=== PATIENT | female | born 1960 | race Caucasian/White ===

== ENCOUNTER 2020-09-28 01:12 | Emergency (ER) | payer OTHER ==
[2020-09-28 01:26] VITALS: BP 127/80
--- NOTE | 2020-09-28 02:01 | ER Document Report ---
ED Medical Screen (RME) - General Chief Complaint: Flank Pain Stated Complaint: ABDOMINAL PAIN POSS KIDNEY STONE Time Seen by Provider: 09/28/20 01:56 Notes: Patient presents to the ER for evaluation of left flank pain that began today. The patient states she has a known kidney stone in the left ureter. She states she was diagnosed last week when she was again symptomatic. She states she was asymptomatic this week until today. She states she is from [place] which is where her urologist is. She denies nausea or vomiting. She denies dysuria. She denies fever. Exam- CONSTITUTIONAL: Patient appears to be uncomfortable. She is in mild distress. PULMONARY: Normal chest rise and fall. No respiratory distress or stridor CARDIOVASCULAR: Regular rate. Distal extremities are warm and well perfused. I have greeted and performed a rapid initial assessment of this patient. A comprehensive ED assessment and evaluation of the patient, analysis of test results and completion of the medical decision making process will be conducted by additional ED providers. Dictation of this chart was performed using voice recognition software; therefore, there may be some unintended grammatical errors. Physical Exam - Vital signs Vitals: Temp Pulse Resp BP Pulse Ox 98.3 F 76 18 127/80 H 97 09/28/20 01:25 09/28/20 01:25 09/28/20 01:25 09/28/20 01:25 09/28/20 01:25 Course - Vital Signs Vital signs: Temp Pulse Resp BP Pulse Ox 98.3 F 76 18 127/80 H 97 09/28/20 01:25 09/28/20 01:25 09/28/20 01:25 09/28/20 01:25 09/28/20 01:25
[2020-09-28 02:48] LABS: ABSOLUTE BASOPHILS # (AUTO) 0.1 10^3/uL (0.0-0.2); ABSOLUTE EOSINOPHILS # (AUTO) 0.2 10^3/uL (0.0-0.6); ABSOLUTE LYMPHOCYTES (AUTO) 1.7 10^3/uL (0.5-4.7); ABSOLUTE MONOCYTES (AUTO) 0.8 10^3/uL (0.1-1.4); ABSOLUTE NEUT (AUTO) 3.6 10^3/uL (1.7-8.2); BASOPHILS % (AUTO) 0.8 % (0-2); EOSINOPHILS % (AUTO) 3.4 % (0-6); HEMATOCRIT 44.5 % (36.0-47.0); HEMOGLOBIN 15.1 g/dL (12.0-15.5); LYMPHOCYTES % (AUTO) 26.7 % (13-45); MEAN CORPUSCULAR HEMOGLOBIN 32.2 pg (27.0-33.4); MEAN CORPUSCULAR HGB CONC 33.9 g/dL (32.0-36.0); MEAN CORPUSCULAR VOLUME 95 fl (80-97); PLATELET COUNT 224 10^3/uL (150-450); RED CELL DISTRIBUTION WIDTH 15.3 % (11.5-14.0); SEGMENTED NEUTROPHILS % (AUTO) 57.1 % (42-78); TOTAL CELLS COUNTED % (AUTO) 100 %; WHITE BLOOD COUNT 6.2 10^3/uL (4.0-10.5)
[2020-09-28 03:04] LABS: ANION GAP 8 (5-19); BLOOD UREA NITROGEN 24 mg/dL (7-20); CALCIUM 9.4 mg/dL (8.4-10.2); CARBON DIOXIDE 22 mmol/L (22-30); CHLORIDE 104 mmol/L (98-107); GLUCOSE 103 mg/dL (75-110); POTASSIUM 4.8 mmol/L (3.6-5.0)
[2020-09-28] MEDS ORDERED: ONDANSETRON HCL INJ/PF 4 MG/2 ML SDV IV ONE (03:17)
[2020-09-28] MEDS ORDERED: MORPHINE SULFATE 10 MG/ML INJ IV ONE (03:17)
[2020-09-28] MEDS ORDERED: NORMAL SALINE 1000 ML 1,000 ML IV ONE (03:17)
[2020-09-28] MEDS ORDERED: KETOROLAC TROMETHAMINE INJ/PF 30 MG/1 ML SDV IV ONE ×2 (03:17→05:32)
[2020-09-28 03:19] LABS: APPEARANCE,URINE SLIGHTLY-CLOUDY; BILIRUBIN,URINE NEGATIVE (NEGATIVE); COLOR,URINE YELLOW; GLUCOSE, URINE NEGATIVE (NEGATIVE); KETONES,URINE NEGATIVE (NEGATIVE); LEUKOCYTE ESTERASE,URINE SMALL (NEGATIVE); NITRITE,URINE NEGATIVE (NEGATIVE); PROTEIN,URINE NEGATIVE (NEGATIVE); URINE SPECIFIC GRAVITY 1.017; UROBILINOGEN,URINE NEGATIVE mg/dL (<2.0)
--- NOTE | 2020-09-28 03:19 | ER Document Report ---
ED GI/ - General Chief Complaint: Flank Pain Stated Complaint: ABDOMINAL PAIN POSS KIDNEY STONE Time Seen by Provider: 09/28/20 01:56 Notes: Patient is a 60-year-old female that comes emergency department for chief complaint of left flank pain. Patient states she has a known 5 mm kidney stone in the left ureter that she is passing, she had a CAT scan last week, she follows with a urologist in [place]. She states that tonight she suddenly started having severe worsening pain in her left mid to lower abdomen radiating to her left flank. She denies nausea, vomiting, fever, dysuria. She denies hematuria. She has never passed a kidney stone before this one. She denies any other complaints. She states she was prescribed Toradol and took a dose around noon and has not had anything for pain since that time. - Related Data Allergies/Adverse Reactions: Sulfa (Sulfonamide Antibiotics) Allergy (Verified 09/28/20 02:01) codeine Adverse Reaction (Verified 09/28/20 02:01) Home Medications: levothyroxine Past Medical History - General Information source: Patient - Social History Smoking Status: Never Smoker Frequency of alcohol use: None Drug Abuse: None Lives with: Family Family History: Reviewed & Not Pertinent Renal/ Medical History: Reports: Hx Kidney Stones Past Surgical History: Reports: Hx Abdominal Surgery - Lap band, Hx Section, Hx Hysterectomy, Hx Orthopedic Surgery - Carpal tunnel Review of Systems - Review of Systems Constitutional: No symptoms reported EENT: No symptoms reported Cardiovascular: No symptoms reported Respiratory: No symptoms reported Gastrointestinal: See HPI Genitourinary: See HPI Female Genitourinary: No symptoms reported Musculoskeletal: No symptoms reported Skin: No symptoms reported Hematologic/Lymphatic: No symptoms reported Neurological/Psychological: No symptoms reported Physical Exam - Vital signs Vitals: Temp Pulse Resp BP Pulse Ox 98.3 F 76 18 127/80 H 97 09/28/20 01:25 09/28/20 01:25 09/28/20 01:25 09/28/20 01:25 09/28/20 01:25 - Notes Notes: GENERAL: Patient grimacing, restless, appears to be in pain HEAD: Normocephalic, atraumatic. EYES: Pupils equal, round, and reactive to light. Extraocular movements intact. ENT: Oral mucosa moist, tongue midline. Oropharynx unremarkable. Airway patent. NECK: Full range of motion. Supple. Trachea midline. No lymphadenopathy. LUNGS: Clear to auscultation bilaterally, no wheezes, rales, or rhonchi. No respiratory distress. Non-tender chest wall. HEART: Regular rate and rhythm. No murmur ABDOMEN: Tenderness over the general mid to lower left abdomen although no rigidity, distention, or guarding are noted EXTREMITIES: Moves all 4 extremities spontaneously. No edema, normal radial and dorsalis pedis pulses bilaterally. No cyanosis. BACK: no cervical, thoracic, lumbar midline tenderness. No saddle anesthesia, normal distal neurovascular exam. Moves all extremities in full range of motion. NEUROLOGICAL: Alert and oriented x3. Normal speech. Cranial nerves II through XII grossly intact. Strength 5/5 in all extremities. PSYCH: Slightly agitated SKIN: Warm, dry, normal turgor. No rashes or lesions noted. Course - Re-evaluation Re-evalutation: On initial exam patient is clearly uncomfortable. She has mild generalized tenderness over the left side of her abdomen however, no guarding, unremarkable exam otherwise. Vital signs unremarkable, no fever. CBC and chemistry reviewed and unremarkable. Urinalysis nonspecific, patient states she did not clean for this, afterwards we attempted a straight catheterization but we did not wait long enough and her bladder was empty, later patient provided a small amount of urine but only filled the bottom of the cup. Patient given IV fluids. Based on squamous epithelials, few white blood cells, no bacteria or nitrites on the repeat urinalysis which patient cleaned before I do not see an overt infection. This was cultured. Patient symptoms significantly improved after medications, patient is only on Toradol at home. Patient already has urology follow-up scheduled. Discussed details, recommendations, provided with symptom relief, discussed return precautions. Patient and state appreciation and agreement. Stable and well-appearing at time of discharge. - Vital Signs Vital signs: Temp Pulse Resp BP Pulse Ox 98.3 F 76 18 127/80 H 97 09/28/20 01:25 09/28/20 01:25 09/28/20 01:25 09/28/20 01:25 09/28/20 01:25 - Laboratory Result Diagrams: 09/28/20 02:15 09/28/20 02:15 Laboratory results interpreted by me: 09/28/20 09/28/20 09/28/20 02:15 02:15 02:57 RDW 15.3 H Sodium 134.3 L BUN 24 H Urine Protein Urine Ketones Urine Blood SMALL H Urine Urobilinogen Ur Leukocyte Esterase SMALL H Urine Ascorbic Acid 09/28/20 04:44 RDW Sodium BUN Urine Protein 100 H Urine Ketones TRACE H Urine Blood MODERATE H Urine Urobilinogen 2.0 H Ur Leukocyte Esterase SMALL H Urine Ascorbic Acid 20 H Discharge - Discharge Clinical Impression: Ureterolithiasis, Flank pain Abdominal pain Qualifiers: Abdominal location: generalized Qualified Code(s): R10.84 - Generalized abdominal pain Condition: Stable Disposition: HOME, SELF-CARE Additional Instructions: Your evaluation is consistent with passing a kidney stone but the remaining work-up is reassuring. Take the morphine along with your Toradol for pain, take Zofran if needed for nausea, drink plenty of fluids. You should be able to pass the stone. Follow- up closely with your urologist. Return if you worsen including severe worsening pain, vomiting, developing chills/fever, or any other concerning symptoms. Prescriptions: Morphine Sulfate [Morphine Ir 15 Mg Tablet] 15 mg PO TID PRN #15 tablet PRN Reason: Ondansetron [Zofran Odt 4 mg Tablet] 1 - 2 tab PO Q4H PRN #15 tab.rapdis PRN Reason: For Nausea/Vomiting
[2020-09-28 05:18] LABS: APPEARANCE,URINE SLIGHTLY-CLOUDY; BILIRUBIN,URINE NEGATIVE (NEGATIVE); GLUCOSE, URINE NEGATIVE (NEGATIVE); KETONES,URINE TRACE mg/dL (NEGATIVE); LEUKOCYTE ESTERASE,URINE SMALL (NEGATIVE); NITRITE,URINE NEGATIVE (NEGATIVE); PROTEIN,URINE 100 mg/dL (NEGATIVE); URINE SPECIFIC GRAVITY 1.034
[2020-09-28 05:24] LABS: COLOR,URINE DARK YELLOW
[2020-09-28] MEDS ORDERED: MORPHINE SULFATE IR 15 MG TABLET PO ONE (05:32)
== END 2020-09-28 06:35 | disposition home or self-care (01) ==
LOC: ER 01:12
DX: N20.1 Calculus of ureter (principal); R10.84 Generalized abdominal pain; Z79.899 Other long term (current) drug therapy; Z88.2 Allergy status to sulfonamides
CPT/HCPCS: 96376; 99284; 96361; 51701; 96374; 96375; 36415; 87086; 85025; 80048; 81001; J1885; J2270; J2405; J7030

== ENCOUNTER 2020-09-29 09:28 | Inpatient (IN) | payer OTHER ==
[2020-09-29] MEDS ORDERED: NALOXONE HCL INJ/PF 0.4 MG/1 ML SDV IV ONE (09:37)
[2020-09-29] MEDS ORDERED: NALOXONE HCL INJ 2 MG/2 ML DISP.SYRIN ONE (09:51)
--- NOTE | 2020-09-29 09:51 | ER Document Report ---
ED General - General Stated Complaint: UNRESPONSIVE Time Seen by Provider: 09/29/20 09:33 - [facility] Notes: Chief complaint: Altered mental status History of present illness: 60-year-old female seen in this facility last night by another provider with a diagnosis of suspected renal colic and sent out with prescription for oral morphine now returning with severe altered mental status. Review of records shows that this lady got a dose of IV morphine while she was here and then went out with immediate release 15 mg morphine tablets or prescription. told EMS that prescription had not been filled she has not taken anything else since leaving the facility. They are visiting here from [place]. Further details of patient's prior medical history are not readily available. called EMS this morning and told him that his is unarousable. When EMS crew arrived they found patient hypothermic with agonal respirations, hypotension, pinpoint pupils and O2 saturation on room air of 35%. They placed her on a nonrebreather and gave her intranasal Narcan 2 mg. Her saturation came up to 100%. She was transported directly here. - Related Data Allergies/Adverse Reactions: Sulfa (Sulfonamide Antibiotics) Allergy (Verified 09/28/20 02:01) codeine Adverse Reaction (Verified 09/28/20 02:01) Past Medical History - General Information source: Emergency Med Personnel, [facility] Records Cannot obtain history due to: Altered mental status - Social History Smoking Status: Unknown if Ever Smoked Family History: Reviewed & Not Pertinent Renal/ Medical History: Reports: Hx Kidney Stones Past Surgical History: Reports: Hx Abdominal Surgery - Lap band, Hx Se ction, Hx Hysterectomy, Hx Orthopedic Surgery - Carpal tunnel Review of Systems - Review of Systems -: Yes ROS unobtainable due to patient's medical condition Physical Exam - Vital signs Vitals: Resp BP Pulse Ox 21 H 110/72 99 09/29/20 09:32 09/29/20 09:32 09/29/20 09:32 - Notes Notes: GENERAL: This is a mildly obese female approximately stated age who is obtunded but arousable. SKIN: Pale, dry, cool to touch. HEAD: Normocephalic atraumatic. EYES: Pupils are small equal and sluggishly reactive to light. Gaze is conjugate. Conjunctivae and sclerae clear. EARS: CANALS AND TMS CLEAR. NOSE: CLEAR. MOUTH: Moist mucosa. Gag reflex intact. No stridor or edema. No drooling. NECK: Supple. No masses or thyromegaly. No adenopathy. Carotids 2+ without bruits. No JVD. BACK: Symmetrical without tenderness. CHEST: Respirations unlabored. Breath sounds clear and symmetrical. HEART: Tachycardic regular rhythm. No murmur gallop or rub. ABDOMEN: Soft, obese nontender without masses, organomegaly or rebound. Bowel sounds normally active. No bruits. GENITALIA: Deferred. EXTREMITIES: IO line present left lower extremity. No edema. No calf tenderness. Cap refill less than 1.5 seconds. Dorsalis pedis and posterior tibial pulses 3+ and symmetrical. NEUROLOGICAL: GCS 12. Patient opens eyes to loud verbal stimuli. Squeezes fingers symmetrically on command. Nonsense syllables. Moves all 4 extremities symmetrically. Course - Re-evaluation Re-evalutation: 09/29/20 15:55 Patient initially appeared to be narcotize stand showed favorable response to admission of additional IV Narcan. White count minimally elevated 12.7. She has elevation of serum glucose which is most likely a stress hyperglycemia. Her lactate was markedly elevated on arrival. Given the overall course of events I thought this was possibly advertising representative of a seizure. Blood cultures were drawn. She was not noted to have a fever here and does not have any evidence of an infiltrate on her chest x-ray. Her urine does not show any pyuria. We will go ahead and empirically give her some IV Rocephin for possibility of sepsis. We note that her lactate is trending downward with IV hydration. Her systolic blood pressure is remained above 100. Pulse rate is 90 and respiratory rate is 17. I spoke with the patient's at some length by telephone and he tells me that her only problem prior to the development of her renal stones was a history of hypothyroidism. He is actually an medical imaging technician in the local hospital in [facility] where the patient was previously treated. He tells me that he has a picture of the noncontrast CT scan she had earlier in the week and this clearly demonstrated a 5 mm stone in the distal ureter at the UVJ. Case has been reviewed with Dr. Wong one of our on-call hospitalist who will be admitting her to [facility]. - Vital Signs Vital signs: Temp Pulse Resp BP Pulse Ox 99.6 F 17 90/57 L 98 11/28/20 15:50 09/29/20 15:47 09/29/20 15:47 09/29/20 15:47 - Laboratory Result Diagrams: 09/29/20 10:03 09/29/20 10:03 Laboratory results interpreted by me: 09/29/20 09/29/20 09/29/20 10:03 10:03 10:03 WBC 12.7 H D Hgb 15.8 H Hct 48.7 H MCV 98 H RDW 15.7 H Seg Neuts % (Manual) 93 H Lymphocytes % (Manual) 4 L Abs Neuts (Manual) 11.8 H Sodium 136.0 L Glucose 334 H POC Glucose Lactic Acid 6.9 H Magnesium 2.6 H AST 77 H ALT 58 H Urine Glucose (UA) Urine Ketones Urine Ascorbic Acid Salicylates < 1.0 L Acetaminophen < 10 L 09/29/20 09/29/20 09/29/20 10:03 10:20 14:14 WBC Hgb Hct MCV RDW Seg Neuts % (Manual) Lymphocytes % (Manual) Abs Neuts (Manual) Sodium Glucose POC Glucose 267 H Lactic Acid 3.7 H Magnesium AST ALT Urine Glucose (UA) >=500 H Urine Ketones TRACE H Urine Ascorbic Acid 20 H Salicylates Acetaminophen - Diagnostic Test Radiology reviewed: Image reviewed, Reports reviewed Radiology results interpreted by me: 09/29/20 14:09 Chest X-Ray 09/29/20 09:37 IMPRESSION: NO ACUTE RADIOGRAPHIC FINDING IN THE CHEST. Head CT 09/29/20 12:00 IMPRESSION: NO ACUTE INTRACRANIAL IMAGING FINDINGS. EVIDENCE OF ACUTE STROKE: NO. - EKG Interpretation by Me Additional EKG results interpreted by me: 09/29/20 14:10 Twelve-lead EKG reviewed by me contemporaneously: 0942 hrs. Indication for study: Altered mental status Rhythm: Sinus tachycardia Rate: 103 Intervals: Normal QRS axis: -[address]/T wave changes: None Comparison with prior tracing: None Interpretation: Sinus tachycardia Critical Care Note - Critical Care Note Total time excluding time spent on procedures (mins): 35 - AMS. Sepsis evaluation. Discharge - Discharge Clinical Impression: Ureterolithiasis, ADVERSE REACTION morphine Altered mental status Qualifiers: Altered mental status type: coma Coma depth: Amando coma 9-12 Coma timing: at arrival to emergency department Qualified Code(s): R40.2422 - Amando coma scale score 9-12, at arrival to emergency department Clinical Impression: (Ruled Out): Adverse reaction to nalorphine Condition: Serious Disposition: ADMITTED INPATIENT Admitting Provider: Drea (Hospitalist) Unit Admitted: [facility]
[2020-09-29] MEDS ORDERED: NALOXONE HCL INJ 2 MG/2 ML DISP.SYRIN IV ONE (09:52)
--- NOTE | 2020-09-29 10:20 | RADIOLOGY REPORT (SQ) ---
EXAM DESCRIPTION: CHEST SINGLE VIEW IMAGES COMPLETED DATE/TIME: 09/29/2020 9:53 am REASON FOR STUDY: ams COMPARISON: None. EXAM PARAMETERS: NUMBER OF VIEWS: One view. TECHNIQUE: Single frontal radiographic view of the chest acquired. RADIATION DOSE: NA LIMITATIONS: None. FINDINGS: LUNGS AND PLEURA: No opacities, masses or pneumothorax. No pleural effusion. MEDIASTINUM AND HILAR STRUCTURES: No masses. Contour normal. HEART AND VASCULAR STRUCTURES: Heart normal in size. Normal vasculature. BONES: No acute findings. HARDWARE: None in the chest. OTHER: No other significant finding. IMPRESSION: NO ACUTE RADIOGRAPHIC FINDING IN THE CHEST. TECHNICAL DOCUMENTATION: JOB ID: [id number] 2010 [employer]- All Rights Reserved Reading location - IP/workstation name: [email or web address]
[2020-09-29 11:04] LABS: HEMATOCRIT 48.7 % (36.0-47.0); HEMOGLOBIN 15.8 g/dL (12.0-15.5); MEAN CORPUSCULAR HEMOGLOBIN 31.8 pg (27.0-33.4); MEAN CORPUSCULAR HGB CONC 32.4 g/dL (32.0-36.0); MEAN CORPUSCULAR VOLUME 98 fl (80-97); PLATELET COUNT 186 10^3/uL (150-450); RED BLOOD COUNT 4.96 10^6/uL (3.72-5.28); RED CELL DISTRIBUTION WIDTH 15.7 % (11.5-14.0)
[2020-09-29 11:06] LABS: APPEARANCE,URINE CLEAR; BILIRUBIN,URINE NEGATIVE (NEGATIVE); COLOR,URINE STRAW; GLUCOSE, URINE >=500 mg/dL (NEGATIVE); KETONES,URINE TRACE mg/dL (NEGATIVE); PROTEIN,URINE NEGATIVE (NEGATIVE); URINE SPECIFIC GRAVITY 1.022; UROBILINOGEN,URINE NEGATIVE mg/dL (<2.0)
[2020-09-29 11:17] LABS: URINE BENZODIAZEPINES SCREEN NEGATIVE; URINE COCAINE SCREEN NEGATIVE; URINE MARIJUANA (THC) SCREEN NEGATIVE; URINE PHENCYCLIDINE SCREEN NEGATIVE
[2020-09-29 11:19] LABS: ALBUMIN 4.3 g/dL (3.5-5.0); ALKALINE PHOSPHATASE 77 U/L (38-126); ANION GAP 13 (5-19); ASPARTATE AMINO TRANSFERASE 77 U/L (14-36); BILIRUBIN,DIRECT 0.2 mg/dL (0.0-0.4); BILIRUBIN,TOTAL 0.4 mg/dL (0.2-1.3); BLOOD UREA NITROGEN 19 mg/dL (7-20); CARBON DIOXIDE 22 mmol/L (22-30); CHLORIDE 101 mmol/L (98-107); CREATINE KINASE 132 U/L (30-135); GLUCOSE 334 mg/dL (75-110); TOTAL PROTEIN 7.4 g/dL (6.3-8.2)
[2020-09-29 11:20] LABS: URINE AMPHETAMINES SCREEN NEGATIVE; URINE BARBITURATES SCREEN NEGATIVE; URINE METHADONE SCREEN NEGATIVE
[2020-09-29 11:23] LABS: WHITE BLOOD COUNT 12.7 10^3/uL (4.0-10.5)
[2020-09-29 11:25] LABS: ABSOLUTE LYMPHOCYTES# (MANUAL) 0.5 10^3/uL (0.5-4.7); ABSOLUTE MONOCYTES # (MANUAL) 0.4 10^3/uL (0.1-1.4); ACETAMINOPHEN < 10 ug/mL (10-30); ALCOHOL < 10 mg/dL (NONE DETECTED); ANISOCYTOSIS 1+; BASOPHILS % (MANUAL) 0 % (0-2); EOSINOPHILS % (MANUAL) 0 % (0-6); LYMPHOCYTES % (MANUAL) 4 % (13-45); MONOCYTES % (MANUAL) 3 % (3-13); SALICYLATE < 1.0 mg/dL (2.0-20.0); SEGMENTED NEUTROPHILS % (MAN) 93 % (42-78); TOTAL CELLS COUNTED 100
[2020-09-29 11:26] LABS: PLATELET COMMENT ADEQUATE
--- NOTE | 2020-09-29 11:55 | EKG REPORT ---
SEVERITY:- ABNORMAL ECG - SINUS TACHYCARDIA NONSPECIFIC T ABNORMALITIES, INFERIOR LEADS : Confirmed by: Horace Shepard MD 29-Sep-2020 11:55:12
--- NOTE | 2020-09-29 13:55 | RADIOLOGY REPORT (SQ) ---
EXAM DESCRIPTION: CT HEAD WITHOUT IMAGES COMPLETED DATE/TIME: 09/29/2020 12:33 pm REASON FOR STUDY: AMS COMPARISON: None. TECHNIQUE: Axial images acquired through the brain without intravenous contrast. Images reviewed wi th bone, brain and subdural windows. Additional sagittal and coronal reconstructions were generated. Images stored on PACS. All CT scanners at this facility use dose modulation, iterative reconstruction, and/or weight based d osing when appropriate to reduce radiation dose to as low as reasonably achievable (ALARA). [facility]: Dose Right [facility]: CareDose [facility]: Dose Right [facility]: Teradose 4D [facility]: [employer] RADIATION DOSE: CT Rad equipment meets quality standard of care and radiation dose reduction techniq ues were employed. CTDIvol: 53.2 mGy. DLP: 1097 mGy-cm. mGy. LIMITATIONS: None. FINDINGS: VENTRICLES: Normal size and contour. CEREBRUM: No masses. No hemorrhage. No midline shift. No evidence for acute infarction. Normal gra y/white matter differentiation. No areas of low density in the white matter. CEREBELLUM: No masses. No hemorrhage. No alteration of density. No evidence for acute infarction. EXTRAAXIAL SPACES: No fluid collections. No masses. ORBITS AND GLOBE: No intra- or extraconal masses. Normal contour of globe without masses. CALVARIUM: No fracture. PARANASAL SINUSES: No fluid or mucosal thickening. SOFT TISSUES: No mass or hematoma. OTHER: No other significant finding. IMPRESSION: NO ACUTE INTRACRANIAL IMAGING FINDINGS. EVIDENCE OF ACUTE STROKE: NO. COMMENT: Quality ID # [id number]: Final reports with documentation of one or more dose reduction techniques (e.g., Automated exposure control, adjustment of the mA and/or kV according to patient size, use of iterative reconstruction technique) TECHNICAL DOCUMENTATION: JOB ID: [id number] [employer]- All Rights Reserved Reading location - IP/workstation name: [email or web address]
[2020-09-29] MEDS: NORMAL SALINE 1000 ML 1,000 ML IV PRN ×2 (14:41→15:39)
[2020-09-29] MEDS ORDERED: CEFTRIAXONE INJ 1000 MG VIAL IV ONE (15:54)
--- NOTE | 2020-09-29 17:09 | RADIOLOGY REPORT (SQ) ---
EXAM DESCRIPTION: CT ABD/PELVIS NO ORAL OR IV IMAGES COMPLETED DATE/TIME: 09/29/2020 4:28 pm REASON FOR STUDY: left flank pain COMPARISON: None. TECHNIQUE: CT scan of the abdomen and pelvis performed without intravenous or oral contrast. Images reviewed with lung, soft tissue, and bone windows. Reconstructed coronal and sagittal MPR images revi ewed. All images stored on PACS. All CT scanners at this facility use dose modulation, iterative reconstruction, and/or weight based d osing when appropriate to reduce radiation dose to as low as reasonably achievable (ALARA). [facility]: Dose Right [facility]: CareDose [facility]: Dose Right [facility]: Teradose 4D [facility]: [employer] RADIATION DOSE: CT Rad equipment meets quality standard of care and radiation dose reduction techniq ues were employed. CTDIvol: 18.6 mGy. DLP: 954 mGy-cm.mGy. LIMITATIONS: None. FINDINGS: 4 mm distal left ureteral calculus at the ureteral orifice into the bladder. This is best shown on axial image 78 and coronal image 63. No significant left hydronephrosis or hydroureter. T here is mild left perinephric stranding. No other left ureteral calculi. 2 mm left upper pole intrarenal nonobstructive stone. No left renal cysts or gross masses. LOWER CHEST: No significant findings. No nodules or infiltrates. NON-CONTRASTED LIVER, SPLEEN, ADRENALS: Evaluation limited by lack of IV contrast. No identified sign ificant masses. PANCREAS: No masses. No peripancreatic inflammatory changes. GALLBLADDER: Multiple tiny gallstones. No inflammatory changes to suggest cholecystitis. RIGHT KIDNEY AND URETER: No suspicious masses. Assessment limited by lack of IV contrast. 5 mm righ t upper pole intrarenal nonobstructive stone, 250 Hounsfield density. No hydronephrosis or hydroure ter. LEFT KIDNEY AND URETER: As above. AORTA AND RETROPERITONEUM: No aneurysm. No retroperitoneal masses or adenopathy. BOWEL AND PERITONEAL CAVITY: Scattered colonic diverticuli. No obvious masses or inflammatory lyn es. No bowel obstruction. No free intraperitoneal air. No free fluid. Left upper quadrant lap ban d weight loss prosthesis APPENDIX: Normal. PELVIS, BLADDER, AND ABDOMINAL WALL:Post hysterectomy. Caballero catheter drains the bladder. No free p elvic fluid BONES: No significant findings. OTHER: No other significant finding. IMPRESSION: 4 mm distal left ureteral stone at the ureteral orifice into the bladder. Mild left per inephric stranding without hydronephrosis. COMMENT: Quality ID # [id number]: Final reports with documentation of one or more dose reduction techniques (e.g., Automated exposure control, adjustment of the mA and/or kV according to patient size, use of iterative reconstruction technique) TECHNICAL DOCUMENTATION: JOB ID: [id number] 2010 [employer]- All Rights Reserved Reading location - IP/workstation name: [email or web address]
[2020-09-29] MEDS ORDERED: ONDANSETRON 4 MG TAB.RAPDIS PO PRN (17:53)
[2020-09-29] MEDS ORDERED: NORMAL SALINE 1000 ML 1,000 ML IV PRN (17:53)
[2020-09-29] MEDS ORDERED: IPRATROPIUM/ALBUTEROL 0.5-2.5 MG/3 ML AMPUL NEB PRN (17:53)
[2020-09-29] MEDS ORDERED: ACETAMINOPHEN 325 MG TABLET PO PRN (17:53)
[2020-09-29] MEDS ORDERED: HYDROCODONE/ACETAMINOPHEN 5-325 MG TABLET PO PRN (17:59)
[2020-09-29] MEDS ORDERED: NALOXONE HCL INJ/PF 0.4 MG/1 ML SDV IV PRN (17:59)
[2020-09-29] MEDS ORDERED: TAMSULOSIN HCL 0.4 MG CAP.SR.24H PO SCH (18:00)
--- NOTE | 2020-09-29 18:09 | PDOC H&P ---
History of Present Illness Admission Date/PCP: 09/29/20 16:16 Patient complains of: Altered mental status History of Present Illness: ADEN CHAUDHRY is a 60 year old female, PMh of Hypothyroidism who was brought to the ED today by EMS due to altered mental status. She was recently diagnosed with kidney stones back in [place] a couple of days ago when she started to experience sharp back pain. she and her then flew here to visit their daughter for thanksgiving. She came to [place] ED last night for renal colic. She was given IV morphine for pain and was discharged on PO morphine which she never got a chance to take. She went to bed and then she was found by her obtunded and unarousable. EMS was called and she was found to have agonal breathing, hypotensive with pinpoint pupils. She was given a dose of intranasal narcan and she was brought here for further evaluation. The patient does not remember what happened and the last thing she remembers was getting up to pee then the next thing was when she woke up in the ambulance. She denies any other drug use and she said that she has not had morphine prior to this. In the ED, BP 110/70, HR 98, RR 18, T 99.8, O2sat 98% on RA. CBC showed a WBC of 12.9. CMP normal. LActic acid 6.9. She was given another dose of Narcan. Repeat CT abdomen showed a 4mm left ureteral stone in the ureteral bladder orrifice and mild perinephric stranding. She was given IV fluids and abx and hospitalist service was called to evaluate and admit the patient. Past Medical History Cardiac Medical History: Reports: None Pulmonary Medical History: Reports: None EENT Medical History: Reports: None Neurological Medical History: Reports: None Endocrine Medical History: Reports: Hypothyroidism Renal/ Medical History: Reports: None Malignancy Medical History: Reports: None GI Medical History: Reports: None Musculoskeltal Medical History: Reports: None Skin Medical History: Reports: None Psychiatric Medical History: Reports: None Traumatic Medical History: Reports: None Hematology: Reports: None Infectious Medical History: Reports: None Past Surgical History Past Surgical History: Reports: Section, Hysterectomy, Orthopedic Surgery - Carpal tunnel Social History Information Source: Patient Lives with: Family Smoking Status: Unknown if Ever Smoked Electronic Cigarette use?: No Hx Recreational Drug Use: No Drugs: None - Advance Directive Resuscitation Status: Full Code Surrogate healthcare decision maker:: CODE status discussed with patient and she wants to be full code and appointed her as her POA. Family History Family History: Reviewed & Not Pertinent Parental Family History Reviewed: Yes Children Family History Reviewed: Yes Sibling(s) Family History Reviewed.: Yes Medication/Allergy Home Medications: Ascorbic Acid [Vitamin C 500 mg Tablet] 500 mg PO DAILY 09/29/20 Levothyroxine Sodium [Synthroid] 125 mcg PO Q6AM 09/29/20 Allergies/Adverse Reactions: Sulfa (Sulfonamide Antibiotics) Allergy (Verified 09/28/20 02:01) codeine Adverse Reaction (Verified 09/28/20 02:01) Review of Systems Constitutional: ABSENT: chills, fatigue, fever(s), weakness Eyes: ABSENT: visual disturbances Ears: ABSENT: hearing changes Nose, Mouth, and Throat: ABSENT: sore throat Cardiovascular: ABSENT: chest pain, dyspnea on exertion, orthropnea, palpitations Genitourinary: PRESENT: dysuria Neurological: PRESENT: confusion. ABSENT: abnormal gait, abnormal movements, ab normal speech, focal weakness Psychiatric: ABSENT: depression Physical Exam Vital Signs: Temp Pulse Resp BP Pulse Ox 99.8 F 20 112/53 L 98 09/29/20 17:46 09/29/20 17:46 09/29/20 17:46 09/29/20 17:46 Intake & Output 09/28/20 09/29/20 09/30/20 06:59 06:59 06:59 Intake Total 1000 Balance 1000 Weight 104.326 kg General appearance: PRESENT: no acute distress, cooperative Head exam: PRESENT: atraumatic, normocephalic Eye exam: PRESENT: EOMI, PERRLA Mouth exam: PRESENT: moist Neck exam: PRESENT: full ROM Respiratory exam: PRESENT: clear to auscultation jerry, symmetrical, unlabored Cardiovascular exam: PRESENT: RRR, +S1, +S2 Pulses: PRESENT: +2 pedal pulses bilateral GI/Abdominal exam: PRESENT: normal bowel sounds, soft. ABSENT: rebound, tenderness Extremities exam: PRESENT: full ROM Musculoskeletal exam: PRESENT: full ROM Neurological exam: PRESENT: alert, awake, oriented to person, oriented to place, oriented to time, oriented to situation Psychiatric exam: PRESENT: normal mood Results Laboratory Results: 09/29/20 10:03 09/29/20 10:03 09/29/20 09/29/20 09/29/20 10:03 10:03 10:03 WBC 12.7 H D RBC 4.96 Hgb 15.8 H Hct 48.7 H MCV 98 H MCH 31.8 MCHC 32.4 RDW 15.7 H Plt Count 186 Seg Neutrophils % Not Reportable Sodium 136.0 L Potassium 5.0 Chloride 101 Carbon Dioxide 22 Anion Gap 13 BUN 19 Creatinine 0.72 Est GFR ( Amer) > 60 Glucose 334 H Lactic Acid 6.9 H Calcium 9.0 Magnesium 2.6 H Total Bilirubin 0.4 AST 77 H Alkaline Phosphatase 77 Total Protein 7.4 Albumin 4.3 Urine Color Urine Appearance Urine pH Ur Specific [place] Urine Protein Urine Glucose (UA) Urine Ketones Urine Blood Urine RBC (Auto) 09/29/20 09/29/20 10:03 14:14 WBC RBC Hgb Hct MCV MCH MCHC RDW Plt Count Seg Neutrophils % Sodium Potassium Chloride Carbon Dioxide Anion Gap BUN Creatinine Est GFR ( Amer) Glucose Lactic Acid 3.7 H Calcium Magnesium Total Bilirubin AST Alkaline Phosphatase Total Protein Albumin Urine Color STRAW Urine Appearance CLEAR Urine pH 5.0 Ur Specific [place] 1.022 Urine Protein NEGATIVE Urine Glucose (UA) >=500 H Urine Ketones TRACE H Urine Blood NEGATIVE Urine RBC (Auto) 3 09/29/20 09/29/20 10:03 10:03 Creatine Kinase 132 Troponin I 0.026 Impressions: Chest X-Ray 09/29/20 09:37 IMPRESSION: NO ACUTE RADIOGRAPHIC FINDING IN THE CHEST. Head CT 09/29/20 12:00 IMPRESSION: NO ACUTE INTRACRANIAL IMAGING FINDINGS. EVIDENCE OF ACUTE STROKE: NO. Abdomen/Pelvis CT 09/29/20 14:13 IMPRESSION: 4 mm distal left ureteral stone at the ureteral orifice into the bladder. Mild left perinephric stranding without hydronephrosis. Assessment and Plan - Diagnosis (1) Acute metabolic encephalopathy Is this a current diagnosis for this admission?: Yes Plan: - was found to be very obtunded with agonal breathing, hypotension and pinpoint pupils after she received a dose of IV morphine in the ED given for renal colic. She is morphine naive - s/p 2mg narcan via EMS and one dose at the ED - CT head negative - drug screen positive for opiates likely from IV morphine she got in the ED - will admit her to monitor - stand by narcan - neuro checks q4 (2) Renal colic Is this a current diagnosis for this admission?: Yes Plan: - recently diagnosed with kidney stone came in due to abdominal pain - CT abdomen showed a 4m left ureteral stone - IV fluids - strain urine - tylenol and norco for pain (3) Ureterolithiasis Is this a current diagnosis for this admission?: Yes Plan: - she recently started Keto diet which likely precipitated the kidney stone - no family history of kidney stone - will continue abx for now pending blood culture - management as above (4) Leukocytosis Qualifiers: Leukocytosis type: unspecified Qualified Code(s): D72.829 - Elevated white blood cell count, unspecified Is this a current diagnosis for this admission?: Yes Plan: - WBC 12.9 likely from kidney stone and hypotension - will continue rocephin for now (5) Hypothyroidism Qualifiers: Hypothyroidism type: unspecified Qualified Code(s): E03.9 - Hypothyroidism, unspecified Is this a current diagnosis for this admission?: Yes Plan: - continue levothyroxine (6) Elevated lactic acid level Is this a current diagnosis for this admission?: Yes Plan: - likely 2/2 to hypotension - will continue IV fluids and repeat lactic acid - Time Time Spent with patient: 25-34 minutes Medications reviewed and adjusted accordingly: Yes Anticipated Discharge Disposition: Home, Self Care Anticipated Discharge Timeframe: within 48 hours
[2020-09-29] MEDS ORDERED: KETOROLAC TROMETHAMINE INJ/PF 30 MG/1 ML SDV IV PRN (18:52)
[2020-09-29] MEDS ORDERED: CEFTRIAXONE 2 GM/D5W RTU 2 GM/50 ML RTUPB IV ONE (19:45)
[2020-09-29] MEDS: DOCUSATE SODIUM 100 MG/10 ML UDC PO SCH (19:50)
--- NOTE | 2020-09-29 22:45 | RADIOLOGY REPORT (SQ) ---
EXAM DESCRIPTION: CTA CHEST CLINICAL HISTORY: 60 years Female; hypoxia, syncope, r/o PE TECHNIQUE: CT angiogram of the chest using intravenous contrast.. MIP reconstructions were performed. All CT scans at this facility use dose modulation, iterative reconstruction, and/or weight based dosing when appropriate to reduce radiation dose to as low as reasonably achievable. COMPARISON: None. FINDINGS: Chest: Vascular: There is a small volume of pulmonary artery embolization extending into the anterior right upper lobe. In addition there is occlusion of a distal subsegmental right middle lobe branch. There appears to be thrombus extending into a segmental branch in the left upper lobe as well as another extending into the left lower lobe segmental branch. Smaller scattered emboli are seen in the lower lobes bilaterally. Overall volume of pulmonary artery embolization is low. There is no evidence of right heart strain. Thoracic aorta is of normal caliber. No aneurysm or dissection. Lungs: There is patchy areas of volume loss in the mid and lower lung zones bilaterally. This is most pronounced in the lower lobes. Findings are suggestive of multifocal pneumonia or aspiration. Trace pleural effusions are present bilaterally. No pneumothorax. Mediastinum: Four-chamber cardiac enlargement is noted. No pericardial abnormality. No mediastinal or hilar lymphadenopathy. Bones and soft tissues: Unremarkable Upper Abdomen: Postsurgical change of left and placement is seen in the upper stomach. IMPRESSION: 1. Scattered small volume pulmonary artery embolization bilaterally. Overall thrombus burden is low. No evidence of right heart failure. 2. Patchy perihilar and lower lobe opacification with small pleural effusions. 3. Postsurgical change of left and placement. No evidence of complication.
[2020-09-29] MEDS ORDERED: ENOXAPARIN SODIUM INJ 100 MG/1 ML DISP.SYRIN SUBCUT SCH (23:15)
[2020-09-30 05:47] LABS: ABSOLUTE MONOCYTES (AUTO) 0.6 10^3/uL (0.1-1.4); ABSOLUTE NEUT (AUTO) 5.9 10^3/uL (1.7-8.2); BASOPHILS % (AUTO) 0.2 % (0-2); EOSINOPHILS % (AUTO) 0.4 % (0-6); HEMATOCRIT 41.5 % (36.0-47.0); LYMPHOCYTES % (AUTO) 12.7 % (13-45); MEAN CORPUSCULAR HEMOGLOBIN 32.4 pg (27.0-33.4); MEAN CORPUSCULAR HGB CONC 33.8 g/dL (32.0-36.0); MEAN CORPUSCULAR VOLUME 96 fl (80-97); MONOCYTES % (AUTO) 8.4 % (3-13); PLATELET COUNT 165 10^3/uL (150-450); RED BLOOD COUNT 4.33 10^6/uL (3.72-5.28); RED CELL DISTRIBUTION WIDTH 15.3 % (11.5-14.0); SEGMENTED NEUTROPHILS % (AUTO) 78.3 % (42-78); TOTAL CELLS COUNTED % (AUTO) 100 %; WHITE BLOOD COUNT 7.6 10^3/uL (4.0-10.5)
[2020-09-30] MEDS ORDERED: LEVOTHYROXINE SODIUM 0.05 MG TABLET PO SCH (06:00)
[2020-09-30 06:23] LABS: ALBUMIN 3.4 g/dL (3.5-5.0); ALKALINE PHOSPHATASE 64 U/L (38-126); ANION GAP 5 (5-19); ASPARTATE AMINO TRANSFERASE 38 U/L (14-36); BILIRUBIN,DIRECT 0.1 mg/dL (0.0-0.4); BILIRUBIN,TOTAL 0.4 mg/dL (0.2-1.3); BLOOD UREA NITROGEN 16 mg/dL (7-20); CALCIUM 8.3 mg/dL (8.4-10.2); CARBON DIOXIDE 23 mmol/L (22-30); CHLORIDE 109 mmol/L (98-107); GLUCOSE 98 mg/dL (75-110); POTASSIUM 4.3 mmol/L (3.6-5.0); TOTAL PROTEIN 6.1 g/dL (6.3-8.2)
--- NOTE | 2020-09-30 08:41 | EKG REPORT ---
SEVERITY:- ABNORMAL ECG - SINUS RHYTHM CONSIDER LEFT VENTRICULAR HYPERTROPHY NONSPECIFIC ST-T CHANGES- INFERIOR LEADS : Confirmed by: Horace Shepard MD 30-Sep-2020 08:40:32
[2020-09-30] MEDS ORDERED: CEFTRIAXONE INJ 1000 MG VIAL IV SCH (10:00)
[2020-09-30] MEDS ORDERED: ENOXAPARIN SODIUM INJ 40 MG/0.4 ML DISP.SYRIN SUBCUT SCH (10:00)
[2020-09-30] MEDS ORDERED: APIXABAN 5 MG TABLET PO ONE (10:02)
[2020-09-30] MEDS: DOCUSATE SODIUM 100 MG/10 ML UDC PO SCH (10:53)
[2020-09-30 11:27] VITALS: BP 119/81
--- NOTE | 2020-09-30 13:26 | PDOC DISCHARGE SUMMARY ---
Impression - Admit/DC Date/PCP Admission Date/Primary Care Provider: 09/29/20 16:16 Discharge Date: 09/30/20 - Discharge Diagnosis (1) Acute metabolic encephalopathy Is this a current diagnosis for this admission?: Yes (2) Renal colic Is this a current diagnosis for this admission?: Yes (3) Ureterolithiasis Is this a current diagnosis for this admission?: Yes (4) Leukocytosis Is this a current diagnosis for this admission?: Yes (5) Hypothyroidism Is this a current diagnosis for this admission?: Yes (6) Elevated lactic acid level Is this a current diagnosis for this admission?: Yes - Assessment Summary: ADEN CHAUDHRY is a 60 year old female, PMh of Hypothyroidism who was brought to the ED today by EMS due to altered mental status. She was recently diagnosed with kidney stones back in [place] a couple of days ago when she started to experience sharp back pain. she and her then flew here to visit their daughter for thanksgiving. She came to [place] ED last night for renal colic. She was given IV morphine for pain and was discharged on PO morphine which she never got a chance to take. She went to bed and then she was found by her ob tunded and unarousable. EMS was called and she was found to have agonal breathing, hypotensive with pinpoint pupils. She was given a dose of intranasal narcan and she was brought here for further evaluation. The patient does not remember what happened and the last thing she remembers was getting up to pee then the next thing was when she woke up in the ambulance. She denies any other drug use and she said that she has not had morphine prior to this. In the ED, BP 110/70, HR 98, RR 18, T 99.8, O2sat 98% on RA. CBC showed a WBC of 12.9. CMP normal. LActic acid 6.9. She was given another dose of Narcan. Repeat CT abdomen showed a 4mm left ureteral stone in the ureteral bladder orrifice and mild perinephric stranding. She was given IV fluids and abx and hospitalist service was called to evaluate and admit the patient. - Additional Information Resuscitation Status: Full Code Discharge Diet: As Tolerated Discharge Activity: Activity As Tolerated Prescriptions: Apixaban [Eliquis 5 mg Tablet] 10 mg PO BID 90 Days #90 tablet Tamsulosin HCl [Flomax 0.4 mg Cap.sr] 0.4 mg PO PCSUPPER 7 Days #7 cap.sr.24h Naproxen Sodium [Naproxen Sodium ER] 500 mg PO BID 7 Days #30 tablet.sa Acetaminophen [Tylenol 325 mg Tablet] 650 mg PO Q4HP PRN 7 Days #15 tablet PRN Reason: Ondansetron [Zofran Odt 4 mg Tablet] 4 mg PO Q6HP PRN 3 Days #12 tab.rapdis PRN Reason: Home Medications: Levothyroxine Sodium [Synthroid] 125 mcg PO Q6AM 09/29/20 Acetaminophen [Tylenol 325 mg Tablet] 650 mg PO Q4HP PRN 7 Days #15 tablet 09/30/20 Apixaban [Eliquis 5 mg Tablet] 10 mg PO BID 90 Days #90 tablet 09/30/20 Aspirin [Aspirin 81 mg Chewable Tablet] 81 mg PO DAILY 09/30/20 Naproxen Sodium [Naproxen Sodium ER] 500 mg PO BID 7 Days #30 tablet.sa 09/30/20 Ondansetron [Zofran Odt 4 mg Tablet] 4 mg PO Q6HP PRN 3 Days #12 tab.rapdis 09/30/20 Tamsulosin HCl [Flomax 0.4 mg Cap.sr] 0.4 mg PO PCSUPPER 7 Days #7 cap.sr.24h 09/30/20 History of Present Illiness History of Present Illness: ADEN CHAUDHRY is a 60 year old female, PMh of Hypothyroidism who was brought to the ED today by EMS due to altered mental status. She was recently diagnosed with kidney stones back in [place] a couple of days ago when she started to experience sharp back pain. she and her then flew here to visit their daughter for thanksgiving. She came to [place] ED last night for renal colic. She was given IV morphine for pain and was discharged on PO morphine which she never got a chance to take. She went to bed and then she was found by her obtunded and unarousable. EMS was called and she was found to have agonal breathing, hypotensive with pinpoint pupils. She was given a dose of intranasal narcan and she was brought here for further evaluation. The patient does not remember what happened and the last thing she remembers was getting up to pee then the next thing was when she woke up in the ambulance. She denies any other drug use and she said that she has not had morphine prior to this. In the ED, BP 110/70, HR 98, RR 18, T 99.8, O2sat 98% on RA. CBC showed a WBC of 12.9. CMP normal. LActic acid 6.9. She was given another dose of Narcan. Repeat CT abdomen showed a 4mm left ureteral stone in the ureteral bladder orrifice and mild perinephric stranding. She was given IV fluids and abx and hospitalist service was called to evaluate and admit the patient. Hospital Course Hospital Course: Patient was seen and examined at bedside. She feels much better, no further episode of hypoxia or obtundation. CTA chest showed that she has a Pulmonary embolism. She has no previous history of embolism, she is hemodynamically stable and is not requiring oxygen. She reports no further episode of flank/abdominal pain. She was discharged on eliquis, tamsulosin and naproxen for pain. She was advised to follow up with her PCP within 1 week. Physical Exam Vital Signs: Temp Pulse Resp BP Pulse Ox 97.5 F 93 18 119/81 100 09/30/20 11:26 09/30/20 11:26 09/30/20 11:26 09/30/20 11:26 09/30/20 11:26 Intake & Output 09/29/20 09/30/20 10/01/20 06:59 06:59 06:59 Intake Total 2520 1000 Output Total 600 Balance 1920 1000 Weight 109.3 kg General appearance: PRESENT: no acute distress, cooperative Head exam: PRESENT: atraumatic, normocephalic Eye exam: PRESENT: EOMI, PERRLA Mouth exam: PRESENT: moist Neck exam: PRESENT: full ROM Respiratory exam: PRESENT: clear to auscultation jerry, symmetrical, unlabored Cardiovascular exam: PRESENT: RRR, +S1, +S2 GI/Abdominal exam: PRESENT: normal bowel sounds, soft. ABSENT: rebound, tenderness Extremities exam: PRESENT: full ROM Musculoskeletal exam: PRESENT: full ROM Neurological exam: PRESENT: alert, awake, oriented to person, oriented to place, oriented to time, oriented to situation Psychiatric exam: PRESENT: normal mood Skin exam: PRESENT: normal color Results Laboratory Results: WBC 7.6 10^3/uL (4.0-10.5) 09/30/20 05:18 RBC 4.33 10^6/uL (3.72-5.28) 09/30/20 05:18 Hgb 14.0 g/dL (12.0-15.5) 09/30/20 05:18 Hct 41.5 % (36.0-47.0) 09/30/20 05:18 MCV 96 fl (80-97) 09/30/20 05:18 MCH 32.4 pg (27.0-33.4) 09/30/20 05:18 MCHC 33.8 g/dL (32.0-36.0) 09/30/20 05:18 RDW 15.3 % (11.5-14.0) H 09/30/20 05:18 Plt Count 165 10^3/uL (150-450) 09/30/20 05:18 Lymph % (Auto) 12.7 % (13-45) L 09/30/20 05:18 [place] % (Auto) 8.4 % (3-13) 09/30/20 05:18 Eos % (Auto) 0.4 % (0-6) 09/30/20 05:18 Baso % (Auto) 0.2 % (0-2) 09/30/20 05:18 Absolute Neuts (auto) 5.9 10^3/uL (1.7-8.2) 09/30/20 05:18 Absolute Lymphs (auto) 1.0 10^3/uL (0.5-4.7) 09/30/20 05:18 Absolute Monos (auto) 0.6 10^3/uL (0.1-1.4) 09/30/20 05:18 Absolute Eos (auto) 0.0 10^3/uL (0.0-0.6) 09/30/20 05:18 Absolute Basos (auto) 0.0 10^3/uL (0.0-0.2) 09/30/20 05:18 Total Counted 100 09/29/20 10:03 Seg Neutrophils % 78.3 % (42-78) H 09/30/20 05:18 Seg Neuts % (Manual) 93 % (42-78) H 09/29/20 10:03 Lymphocytes % (Manual) 4 % (13-45) L 09/29/20 10:03 Monocytes % (Manual) 3 % (3-13) 09/29/20 10:03 Eosinophils % (Manual) 0 % (0-6) 09/29/20 10:03 Basophils % (Manual) 0 % (0-2) 09/29/20 10:03 Abs Neuts (Manual) 11.8 10^3/uL (1.7-8.2) H 09/29/20 10:03 Abs Lymphs (Manual) 0.5 10^3/uL (0.5-4.7) 09/29/20 10:03 Abs Monocytes (Manual) 0.4 10^3/uL (0.1-1.4) 09/29/20 10:03 Absolute Eos (Manual) 0.0 10^3/uL (0.0-0.6) 09/29/20 10:03 Abs Basophils (Manual) 0.0 10^3/uL (0.0-0.2) 09/29/20 10:03 Platelet Comment ADEQUATE 09/29/20 10:03 Anisocytosis 1+ 09/29/20 10:03 Sodium 137.1 mmol/L (137-145) 09/30/20 05:18 Potassium 4.3 mmol/L (3.6-5.0) 09/30/20 05:18 Chloride 109 mmol/L (98-107) H 09/30/20 05:18 Carbon Dioxide 23 mmol/L (22-30) 09/30/20 05:18 Anion Gap 5 (5-19) 09/30/20 05:18 BUN 16 mg/dL (7-20) 09/30/20 05:18 Creatinine 0.57 mg/dL (0.52-1.25) 09/30/20 05:18 Est GFR ( Amer) > 60 (>60) 09/30/20 05:18 Est GFR (MDRD) Non-Af > 60 (>60) 09/30/20 05:18 Glucose 98 mg/dL (75-110) 09/30/20 05:18 POC Glucose 267 mg/dL (70-110) H 09/29/20 10:20 Lactic Acid 1.6 mmol/L (0.7-2.1) 09/29/20 18:11 Calcium 8.3 mg/dL (8.4-10.2) L 09/30/20 05:18 Magnesium 2.6 mg/dL (1.6-2.3) H 09/29/20 10:03 Total Bilirubin 0.4 mg/dL (0.2-1.3) 09/30/20 05:18 Direct Bilirubin 0.1 mg/dL (0.0-0.4) 09/30/20 05:18 Neonat Total Bilirubin Not Reportable 09/30/20 05:18 Neonat Direct Bilirubin Not Reportable 09/30/20 05:18 Neonat Indirect Bili Not Reportable 09/30/20 05:18 AST 38 U/L (14-36) H 09/30/20 05:18 ALT 44 U/L (<35) H 09/30/20 05:18 Alkaline Phosphatase 64 U/L (38-126) 09/30/20 05:18 Creatine Kinase 132 U/L (30-135) 09/29/20 10:03 Troponin I 0.026 ng/mL 09/29/20 10:03 Total Protein 6.1 g/dL (6.3-8.2) L 09/30/20 05:18 Albumin 3.4 g/dL (3.5-5.0) L 09/30/20 05:18 Urine Color STRAW 09/29/20 10:03 Urine Appearance CLEAR 09/29/20 10:03 Urine pH 5.0 (5.0-9.0) 09/29/20 10:03 Ur Specific [place] 1.022 09/29/20 10:03 Urine Protein NEGATIVE mg/dL (NEGATIVE) 09/29/20 10:03 Urine Glucose (UA) >=500 mg/dL (NEGATIVE) H 09/29/20 10:03 Urine Ketones TRACE mg/dL (NEGATIVE) H 09/29/20 10:03 Urine Blood NEGATIVE (NEGATIVE) 09/29/20 10:03 Urine Nitrite (Reflex) NEGATIVE (NEGATIVE) 09/29/20 10:03 Urine Bilirubin NEGATIVE (NEGATIVE) 09/29/20 10:03 Urine Urobilinogen NEGATIVE mg/dL (<2.0) 09/29/20 10:03 Leukocyte Esterase Rfl NEGATIVE (NEGATIVE) 09/29/20 10:03 Urine RBC (Auto) 3 /HPF 09/29/20 10:03 Urine WBC (Reflex) 1 /HPF 09/29/20 10:03 Squamous Epi Cells Auto <1 /HPF 09/29/20 10:03 Urine Mucus (Auto) RARE /LPF 09/29/20 10:03 Urine Ascorbic Acid 20 (NEGATIVE) H 09/29/20 10:03 Salicylates < 1.0 mg/dL (2.0-20.0) L 09/29/20 10:03 Urine Opiates Screen UNCONFIRMED POSITIVE 09/29/20 10:03 Urine Methadone Screen NEGATIVE 09/29/20 10:03 Acetaminophen < 10 ug/mL (10-30) L 09/29/20 10:03 Ur Barbiturates Screen NEGATIVE 09/29/20 10:03 Ur Phencyclidine Scrn NEGATIVE 09/29/20 10:03 Ur Amphetamines Screen NEGATIVE 09/29/20 10:03 U Benzodiazepines Scrn NEGATIVE 09/29/20 10:03 Urine Cocaine Screen NEGATIVE 09/29/20 10:03 U Marijuana (THC) Screen NEGATIVE 09/29/20 10:03 Serum Alcohol < 10 mg/dL (NONE DETECTED) 09/29/20 10:03 COVID-19 Source See comment 09/30/20 10:55 09/29/20 10:03 Troponin I 0.026 Impressions: Chest X-Ray 09/29/20 09:37 IMPRESSION: NO ACUTE RADIOGRAPHIC FINDING IN THE CHEST. Head CT 09/29/20 12:00 IMPRESSION: NO ACUTE INTRACRANIAL IMAGING FINDINGS. EVIDENCE OF ACUTE STROKE: NO. Abdomen/Pelvis CT 09/29/20 14:13 IMPRESSION: 4 mm distal left ureteral stone at the ureteral orifice into the bladder. Mild left perinephric stranding without hydronephrosis. Chest/Abdomen CTA 09/29/20 14:14 IMPRESSION: 1. Scattered small volume pulmonary artery embolization bilaterally. Overall thrombus burden is low. No evidence of right heart failure. 2. Patchy perihilar and lower lobe opacification with small pleural effusions. 3. Postsurgical change of left and placement. No evidence of complication. Plan Plan of Treatment: - She was discharged on Eliquis 10 mg BID for 7 days then 5 mg BID for minimum of 3 months - advised to drink plenty of water to help pass stone - follow up with PCP. Time Spent: Less than 30 Minutes Stroke Is this a Stroke Patient?: No Acute Heart Failure Is this a Heart Failure Patient?: No
[2020-09-30] MEDS ORDERED: CEFTRIAXONE 2 GM/D5W RTU 2 GM/50 ML RTUPB IV SCH (18:00)
== END 2020-09-30 12:21 | disposition home or self-care (01) | DRG 92 ==
LOC: ER 09:28 → EH 16:16 → 3S 19:25
PROVIDERS: ADMIT Internal Medicine; ATTEND Internal Medicine
DX: G92 Toxic encephalopathy (principal); N20.1 Calculus of ureter; T40.2X5A Adverse effect of other opioids, initial encounter; D72.829 Elevated white blood cell count, unspecified; E03.9 Hypothyroidism, unspecified; Z79.890 Hormone replacement therapy; Z88.2 Allergy status to sulfonamides; Z88.6 Allergy status to analgesic agent; R74.8 Abnormal levels of other serum enzymes; Z20.828 Contact with and (suspected) exposure to other viral communicable diseases; R40.2422 Glasgow coma scale score 9-12, at arrival to emergency department
CPT/HCPCS: 36415; 70450; 71045; 71275; 74176; 80053; 80307; 81001; 82550; 82962; 83605; 83735; 84484; 85025; 87040; 87635; 93005; 93010; 96361; 96374; 99285; C9803; J0696; J1650; J1885; J2310; J7030